=== PATIENT | male | born 1965 | race Caucasian/White ===

== ENCOUNTER → 2020-03-03 | Outpatient (CLI) | payer OTHER ==
[~2020-03-03] MED LIST: Bupropion HCl100 MG PO; Cardizem CD 24240 MG PO; DESV50 PO; DILT30; GABA400; Keflex500 MG PO; Lisinopril2.5 MG PO; METO25 PO; Norco 5-325 Ta1 EACH PO
[2020-03-04 09:10] LABS: H. PYLORI BREATH TEST Negative (Negative)
== END | disposition home or self-care (01) ==
LOC: LAB SHORT 13:07 → OLS 13:07 → LAB FUT 12-15 10:40
PROVIDERS: Student in an Organized Health Care Education/Training Program
DX: K29.60 Other gastritis without bleeding (principal); B96.81 Helicobacter pylori [H. pylori] as the cause of diseases classified elsewhere
CPT/HCPCS: 83013

== ENCOUNTER 2025-06-03 15:58 | Emergency (ER) | payer OTHER ==
[~2025-06-03] VITALS: Ht 175.3 cm; Wt 90.7 kg
[2025-06-03] MEDS ORDERED: Ketorolac Tromethamine 30mg Vial IV ONE (16:15)
[2025-06-03] MEDS ORDERED: NS 1,000 ML IV SCH (16:15)
[2025-06-03 16:20] LABS: Source, Urine Clean Catch
[2025-06-03] MEDS ORDERED: AMLO5 (16:21)
[2025-06-03 16:22] LABS: BASOPHILS ABSOLUTE AUTO 0.06 K/mm3 (0.00-0.23); BASOPHILS PERCENT AUTO 1 % (0-2); EOSINOPHILS ABSOLUTE AUTO 0.08 K/mm3 (0.00-0.68); EOSINOPHILS PERCENT AUTO 1 % (0-6); Hematocrit 44.4 % (37.0-53.0); Hemoglobin 15.2 g/dL (13.5-17.5); IMMATURE GRAN ABSOLUTE AUTO 0.02 K/mm3 (0.00-0.10); IMMATURE GRAN PERCENT AUTO 0 % (0-1); LYMPHOCYTES ABSOLUTE AUTO 2.56 K/mm3 (0.84-5.20); LYMPHOCYTES PERCENT AUTO 32 % (21-46); MONOCYTES ABSOLUTE AUTO 0.75 K/mm3 (0.16-1.47); MONOCYTES PERCENT AUTO 9 % (4-13); Mean Corpuscular HGB Conc 34.2 g/dL (31.5-36.5); Mean Corpuscular Volume 86 fL (80-100); NEUTROPHILS ABSOLUTE AUTO 4.54 K/mm3 (1.96-9.15); NEUTROPHILS PERCENT AUTO 57 % (41-73); NRBC ABSOLUTE 0.00 K/mm3 (0.00-0.02); NRBC Auto 0.0 /100 WBC (0.0-0.2); Platelet Count 205 K/mm3 (150-400); RDW Coefficient Variation 12.5 % (11.7-14.2); RDW Standard Deviation 38.8 fL (35.1-46.3)
[2025-06-03 16:25] LABS: Bilirubin, Urine Neg (Neg); Glucose Qualitative, Urine Neg (Neg); Ketones, Urine Neg (Neg); Leukocyte Esterase, Urine Neg (Neg); Protein, Urine Neg (Neg); Specific Gravity, Urine 1.015 (1.003-1.022); Urobilinogen, Urine NORM (Normal)
[2025-06-03 16:36] LABS: Color, Urine Pale Yellow (P-Yellow)
[2025-06-03 16:37] LABS: White Blood Cells, Urine 0-2 /hpf (0-5)
[2025-06-03 16:48] LABS: Alanine Aminotransfer (ALT/SGP 22.0 U/L (12-78); Albumin, Blood 3.8 g/dL (3.4-5.0); Albumin/Globulin Ratio 1.2 (0.8-1.8); Anion Gap 10.0 mmol/L (3-11); Aspartate Aminotrans (AST/SGOT 15.0 U/L (12-37); Bilirubin, Total 0.6 mg/dL (0.1-1.0); Blood Urea Nitrogen 23.0 mg/dL (8-24); CO2, Blood 27.0 mmol/L (21-32); Calcium, Blood 8.9 mg/dL (8.5-10.1); Chloride, Blood 105.0 mmol/L (98-108); Creatinine, Blood 1.84 mg/dL (0.60-1.20); Globulin, Blood 3.2 g/dL (2.2-4.0); Glucose, Blood 117.0 mg/dL (70-99); Potassium, Blood 3.6 mmol/L (3.5-5.5); Sodium, Blood 138.0 mmol/L (136-145); Total Protein, Blood 7.0 g/dL (6.4-8.2)
[2025-06-03] MEDS ORDERED: Percocet 5-3251 EACH PO (17:16)
[2025-06-03] MEDS ORDERED: TAMS.4ER PO (17:16)
[2025-06-03] MEDS ORDERED: ONDA4ODT MM (17:16)
[2025-06-03] MEDS ORDERED: OxyCODONE 5 mg/Acetamin 325 mg TABLET PO ONE (17:50)
[2025-06-03 18:06] VITALS: BP 148/107
== END 2025-06-03 18:06 | disposition home or self-care (01) ==
LOC: ER 15:58
PROVIDERS: Emergency Medicine
DX: N13.2 Hydronephrosis with renal and ureteral calculous obstruction (principal); I10 Essential (primary) hypertension; K21.9 Gastro-esophageal reflux disease without esophagitis; Z88.5 Allergy status to narcotic agent; Z88.8 Allergy status to other drugs, medicaments and biological substances; Z79.899 Other long term (current) drug therapy
CPT/HCPCS: 74176; 80053; 81001; 84484; 85025; 93005; 93010; 96361; 96374; 99284-25; A9270; J1885; J7030